=== PATIENT | male | born 1955 | race Asian ===

== ENCOUNTER 2018-06-20 06:23 | Day surgery (SDC) | payer OTHER ==
[2018-06-20] MEDS ORDERED: FENTAnyl 50 MCG/ML VIAL (08:24)
[2018-06-20] MEDS ORDERED: MIDAZOLAM 1 MG/ML 2 ML INJ ×2 (08:24)
== END 2018-06-20 12:43 | disposition home or self-care (01) ==
LOC: GIL 06:23
DX: D12.2 Benign neoplasm of ascending colon (principal); K64.8 Other hemorrhoids; K57.30 Diverticulosis of large intestine without perforation or abscess without bleeding; I10 Essential (primary) hypertension; E11.9 Type 2 diabetes mellitus without complications
CPT/HCPCS: 45380; 82962; 88305